=== PATIENT | male | born 1990 | race Two or more races ===

== ENCOUNTER 2020-01-21 09:44 | Emergency (ER) | payer MEDICAID ==
[~2020-01-21] VITALS: Ht 180.3 cm; Wt 90.7 kg
[2020-01-21 09:51] VITALS: BP 131/66
[2020-01-21] MEDS ORDERED: KETOROLAC TROMETH 30 MG/ML 1ML VIAL IV ONE (10:45)
[2020-01-21] MEDS ORDERED: methylPREDNISolone SOD SUCC 125 MG/2 ML VL IV ONE (10:45)
[2020-01-21] MEDS ORDERED: cefTRIAXone 1GM/50ML D5W 50 ML IV ONE (10:45)
[2020-01-21] MEDS ORDERED: methylPREDNISolone SOD SUCC 125 MG/2 ML VL IM ONE (10:45)
== END 2020-01-21 11:18 | disposition home or self-care (01) ==
LOC: ER 09:44
DX: L03.113 Cellulitis of right upper limb (principal)
CPT/HCPCS: 73080; 96365; 96375; 99284; J0696; J1885; J2930

== ENCOUNTER 2020-01-26 09:26 | Emergency (ER) | payer MEDICAID ==
[~2020-01-26] VITALS: Ht 180.3 cm; Wt 88.5 kg
[2020-01-26 10:56] VITALS: BP 140/62
== END 2020-01-26 11:49 | disposition home or self-care (01) ==
LOC: ER 09:26
DX: M70.31 Other bursitis of elbow, right elbow (principal); Y93.89 Activity, other specified